=== PATIENT | male | born 1950 | race Caucasian/White ===

== ENCOUNTER 2024-10-09 07:36 | Day surgery (SDC) | payer MEDICARE ==
[2024-10-07 18:18] VITALS: BMI 27.6
[2024-10-09] MEDS: IV FLUID CONTINUATION 1,000 ML IV ONE (07:53)
[2024-10-09 07:59] VITALS: RESP 16; TEMP 97.8
[2024-10-09] MEDS: LACTATED RINGERS 1,000 ML IV SCH (08:07)
[2024-10-09] MEDS ORDERED: PROPOFOL 10 MG/ML 20 ML VIAL IV ONE (08:47)
[2024-10-09] MEDS ORDERED: LIDOCAINE 1% INJ 10MG/ML (20 ML MDV) ONE (08:47)
--- NOTE | 2024-10-09 09:05 | P.PCN ---
Date of Procedure: 10/09/24 Procedure(s) Performed: Brief history: Patient is a pleasant 74-year-old white male scheduled for an elective upper endoscopy as well as colonoscopy as a part of evaluation of abdominal pain and screening for colon cancer. He recently had ultrasound of the abdomen followed by MRI of the abdomen that showed lesions in the liver measuring 4 cm and 3 cm in size suspicious for malignancy and is scheduled for ultrasound guided liver biopsy of the liver lesions next week. Procedure performed: Esophagogastroduodenoscopy with biopsy Colonoscopy Preoperative diagnosis: Abdominal pain, abnormal MRI scan showing liver lesions Screening for colon cancer Anesthesia: MAC Procedure: After informed consent was obtained from the patient was brought into the endoscopy unit and IV sedation was administered by anesthesia under continuous monitoring. Initially upper endoscopy was done. The Olympus GF 160 video endoscope was inserted inserted into the mouth and esophagus intubated without any difficulty and was gradually advanced into the stomach and duodenum and carefully examined. The bulb and second part of the duodenum appeared normal. The scope was then withdrawn into the stomach adequately insufflated with air and upon careful examination the antrum and body, and minimal gastritis. Mucosa of the cardia and fundus appeared normal. The scope was then withdrawn into the esophagus. The GE junction was located at 40 cm to the incisors. It appeared regular with no erythema erosions or ulcerations. Rest of the esophagus appeared normal. Patient tolerated the procedure well. At this time the patient continued to remain sedation. Initial digital rectal examination was normal. Olympus CF 160 video colonoscope was then inserted into the rectum and gradually advanced to the cecum without any difficulty. Careful examination was performed as the scope was gradually being withdrawn. The prep was excellent. The cecum, ascending colon, transverse colon, descending colon, sigmoid colon and rectum appeared normal. Moderate sigmoid diverticulosis. Retroflexion was performed in the rectum and small internal hemorrhoid were noted. Patient tolerated the procedure well. Impression: 1. Upper endoscopy revealed minimal antral gastritis 2. Colonoscopy revealed moderate sigmoid diverticulosis and small internal hemorrhoids but no evidence of colorectal neoplasia Recommendations: Findings of this examination were discussed with the patient as well as his family. He was advised to continue with a high-fiber diet. He is scheduled for ultrasound-guided liver biopsy next week. Follow-up in the office in 2 weeks.
[2024-10-09 09:57] VITALS: BP 175/90; PULSE 65
== END 2024-10-09 10:09 | disposition home or self-care (01) ==
LOC: ORWHC2ENDO 07:36
PROVIDERS: ATTEND Internal Medicine Gastroenterology
DX: Z12.11 Encounter for screening for malignant neoplasm of colon (principal); K29.50 Unspecified chronic gastritis without bleeding; K57.30 Diverticulosis of large intestine without perforation or abscess without bleeding; K64.8 Other hemorrhoids; K21.9 Gastro-esophageal reflux disease without esophagitis; I08.9 Rheumatic multiple valve disease, unspecified; I10 Essential (primary) hypertension; G47.33 Obstructive sleep apnea (adult) (pediatric); N40.0 Benign prostatic hyperplasia without lower urinary tract symptoms; Z79.899 Other long term (current) drug therapy
CPT/HCPCS: 43239; J2003; J2704; G0121; 43235

== ENCOUNTER 2024-10-16 07:47 | Day surgery (SDC) | payer MEDICARE ==
[2024-10-16] MEDS ORDERED: ALPRAZolam 0.25 MG TAB PO PRN (08:47)
[2024-10-16] MEDS ORDERED: HYDROmorphone 0.5 MG/0.5 ML SYRINGE IVP PRN (08:47)
[2024-10-16 09:39] LABS: Basophils # (A) 0.06 10*3/uL (0.00-0.10); Basophils % (A) 1.0 %; Eosinophils # (A) 0.20 10*3/uL (0.04-0.35); Eosinophils % (A) 3.2 %; HCT 50.0 % (39.6-50.0); HGB 16.9 g/dL (13.0-17.0); Immature Platelet Fraction 6.5 % (1.1-6.1); Lymphocytes # (A) 1.11 10*3/uL (0.90-5.00); Lymphocytes % (A) 18.0 %; MCH 32.8 pg (27.0-32.0); MCHC 33.8 g/dL (32.0-37.0); MCV 96.9 fL (80.0-97.0); Monocytes # (A) 0.56 10*3/uL (0.20-1.00); Monocytes % (A) 9.1 %; Neutrophils # (A) 4.19 10*3/uL (1.80-7.70); Neutrophils % (A) 68.1 %; Platelet Count 110 10*3/uL (140-440); RBC 5.16 10*6/uL (4.40-5.60); RDW 12.6 % (11.5-14.5); WBC 6.16 10*3/uL (4.50-10.00)
[2024-10-16 10:02] VITALS: PULSE 84; RESP 16; TEMP 98.1
[2024-10-16 10:04] VITALS: BP 194/90
[2024-10-16 10:04] LABS: ALT 67 U/L (4-49); AST 71 U/L (17-59); African American GFR (CKD) >90 (>60 ml/min/1.73 sqM); Albumin 4.0 g/dL (3.5-5.0); Alkaline Phosphatase 128 U/L (38-126); Anion Gap 9 mmol/L; Blood Urea Nitrogen 16 mg/dL (9-20); Calcium 9.4 mg/dL (8.4-10.2); Carbon Dioxide 34 mmol/L (22-30); Chloride 102 mmol/L (98-107); Glucose 104 mg/dL (74-99); Non-African American GFR(CKD) 88 (>60 ml/min/1.73 sqM); Potassium 4.5 mmol/L (3.5-5.1); Sodium 145 mmol/L (137-145); Total Protein 7.5 g/dL (6.3-8.2)
[2024-10-16 10:06] LABS: INR 1.0 (<1.2); Prothrombin Time 11.3 sec (10.0-12.5)
--- NOTE | 2024-10-16 11:23 | US ---
EXAMINATION TYPE: US discontinued liver bx panel DATE OF EXAM: 10/16/2024 9:51 AM CLINICAL INDICATION:Male, 74 years old with history of K76.9 liver disease and to focal right hepati c lobe lesions, referred for biopsy COMPARISON: Outside exams 08/07/2024 and 09/04/2024 ATTENDING: Dr. Fairbanks TECHNIQUE AND FINDINGS: The patient was seen by radiology nursing and found to be hypertensive with systolic pressures in the 190s. The patient is to see his doctor tomorrow and is rescheduled, will return for biopsy in 2 days . Exam canceled at this time. [facility], , 10/16/2024 11:21 AM
== END 2024-10-16 10:05 | disposition home or self-care (01) ==
LOC: RADPROMAIN 07:47
PROVIDERS: ATTEND Internal Medicine Gastroenterology
DX: Z53.8 Procedure and treatment not carried out for other reasons (principal); K76.9 Liver disease, unspecified
CPT/HCPCS: 36415; 76705; 80053; 82105; 85025; 85610

== ENCOUNTER 2024-10-18 08:10 | Day surgery (SDC) | payer MEDICARE ==
[2024-10-18] MEDS: ALPRAZolam 0.25 MG TAB PO STA (09:06)
[2024-10-18 09:22] VITALS: TEMP 98.4
[2024-10-18] MEDS: HYDROmorphone 0.5 MG/0.5 ML SYRINGE IVP PRN (10:28)
[2024-10-18 11:07] VITALS: RESP 16
--- NOTE | 2024-10-18 11:40 | US ---
EXAMINATION TYPE: US biopsy liver DATE OF EXAM: 10/18/2024 11:08 AM CLINICAL INDICATION:Male, 74 years old with history of K76.9 LIVER DISEASE, UNSPECIFIED; COMPARISON: Ultrasound 08/07/2024 and MRI 09/04/2024 ATTENDING: Dr. Fairbanks TECHNIQUE: Ultrasound guided percutaneous biopsy of inferior right liver lobe mass using coaxial method. Nursing administered 0.5 mg IV Dilaudid to the patient. The patient was monitored by a qualified trained emilie se independent of the Radiologist during the procedure. FINDINGS: The procedure was explained to the patient. All questions were answered and informed consent was obta ined. The patient was placed supine and transverse ultrasound images of the hypoechoic mass estimated to me asure 3.4 cm in the inferior right liver lobe are identified. An oblique transducer position was used for an intercostal approach. We again note posterior to transmission of the lesion with background f atty liver. The overlying skin was marked and prepped using sterile method. Timeout was taken per protocol. Follo wing administration 1% local lidocaine anesthesia, a 10 cm 17/18-gauge Bard biopsy system was advance d with needle tip visualized within the liver mass. Three 18-gauge core biopsy was obtained, placed in formalin solution, and sent to pathology. The needle was removed. Other additional ultrasound scanning shows no abnormal fluid collection or ev ident complication. Hemostasis was obtained and a dressing was placed. Patient was taken for postprocedure observation in stable condition. IMPRESSIONS: Status post ultrasound guided inferior right liver lobe mass biopsy. Pathology results pending. Given through-transmission and hypoechoic appearance on a background of fatty liver change, hemangioma rem ains in the differential. [facility], , 10/18/2024 11:38 AM
[2024-10-18 17:07] VITALS: BP 162/79; PULSE 62
== END 2024-10-18 15:00 | disposition home or self-care (01) ==
LOC: RADPROMAIN 08:10
PROVIDERS: ATTEND Internal Medicine Gastroenterology
DX: C22.0 Liver cell carcinoma (principal)
CPT/HCPCS: 36415; 47000; 76942; 88307; 88313; 88341; 88342